=== PATIENT | female | born 1950 | race Caucasian/White ===

== ENCOUNTER 2016-07-01 16:26 | Emergency (ER) | payer OTHER ==
--- NOTE | 2016-07-01 17:46 | ER PHYSICIAN DOCUMENTATION ---
Physician Documentation [facility] Name:Cynthia Acevedo Age:65 yrs Sex:Female :1950 Arrival Date:07/01/2016 Time:16:26 Bed5 Private MD:Deedee Fuchs EDBriannaKristofer Disposition: 07/01 18:00 Chart complete. tl1 Disposition: 07/01/16 17:24 Discharged to Home/Self Care. Impression: Viral Upper Respiratory Infection (URI). - Condition is Good. - Discharge Instructions: INFLUENZA (Adult), VIRAL URI Adult - URI, Viral, No Abx (Adult). - Medical Reconciliation form form. - Follow up: Deedee Fuchs MD; When: 4- 6 days; Reason: Recheck today's complaints, Continuance of care. - Problem is new. - Symptoms have worsened. - Notes: OK TO TRY TAMIFLU. YOU COULD HAVE INFLUENZA EVEN THOUGH YOUR TEST TODAY WAS NEGATIVE. HPI: 16:39 This 65 yrs old Female presents to ER with complaints of Cold Symptoms. tl1 16:45 This feels like prior episodes of influenza. Abrupt onset yesterday of fever, malaise, tl1 myalgias, ST, mild cough, h/a. No N/V/D or rash.. Historical: - Allergies: Levaquin; - Home Meds: 1. None 2. Flonase 50 mcg/actuation nasal spsn - PMHx: Medical Screening Exam-Non Urgent (November 13, 2015); influenza twice; Acute Sinusitis - : Maxillary (May 16, 2014); - PSHx: KNEE SURGERY; HYSTERECTOMY; - Tetanus: < 10 years. - Ebola Screening: : Patient negative for fever greater than or equal to 101.5 degrees Fahrenheit, and additional compatible Ebola Virus Disease symptoms. Patient denies exposure to infectious person. Patient denies travel to an Ebola-affected area in the 21 days before illness onset. No symptoms or risks identified at this time. . - Immunization history: Flu Vaccine < 1 year. - Social history: Smoking status: Patient states was never smoker of tobacco. ROS: 16:45 Respiratory: Negative for hemoptysis, orthopnea, pleurisy, shortness of breath, sputum tl1 production, wheezing. 16:45 All other systems are negative. Exam: 16:45 Constitutional: This is a well developed, well nourished patient who is awake, alert, tl1 and in no acute distress. Head/Face: Normocephalic, atraumatic. Eyes: Pupils equal round and reactive to light, extra-ocular motions intact. Lids and lashes normal. Conjunctiva and sclera are non-icteric and not injected. Cornea within normal limits. Periorbital areas with no swelling, redness, or edema. ENT: Nares patent. No nasal discharge, no septal abnormalities noted. Tympanic membranes are normal and external auditory canals are clear. Oropharynx with no redness, swelling, or masses, exudates, or evidence of obstruction, uvula midline. Mucous membranes moist. Neck: Trachea midline, no thyromegaly or masses palpated, and no cervical lymphadenopathy. Supple, full range of motion without nuchal rigidity, or vertebral point tenderness. No Meningismus. Cardiovascular: Regular rate and rhythm with a normal S1 and S2. No gallops, murmurs, or rubs. Normal PMI, no JVD. No pulse deficits. Respiratory: Lungs have equal breath sounds bilaterally, clear to auscultation and percussion. No rales, rhonchi or wheezes noted. No increased work of breathing, no retractions or nasal flaring. Abdomen/GI: Soft, non-tender, with normal bowel sounds. No distension or tympany. No guarding or rebound. No evidence of tenderness throughout. 16:45 Skin: Warm, dry with normal turgor. Normal color with no rashes, no lesions, and no tl1 evidence of cellulitis. Vital Signs: 17:08 BP 125 / 82; Pulse 91; Resp 24; Temp 100.1; Pulse Ox 95% on R/A; Pain 7/10; rs MDM: 16:35 Patient medically screened. tl1 18:00 Differential diagnosis: bronchitis, flu, URI. Antibiotic administration: Not indicated, tl1 She has Tamiflu at home and plans to take it. I gave her my Tamiflu Schpiel: that I generally do not recommend it and that the potential side effects may not justify the potential small benefit. She understands.. Data reviewed: vital signs, nurses notes, lab test result(s), and as a result, I will discharge patient. Counseling: I had a detailed discussion with the patient and/or guardian regarding: the historical points, exam findings, and any diagnostic results supporting the discharge/admit diagnosis, lab results, the need for outpatient follow up, to return to the emergency department if symptoms worsen or persist or if there are any questions or concerns that arise at home. 07/01 16:59 Order name: INFLUENZA A/B; Complete Time: 17:21 EDCT 07/01 17:21 Interpretation: Normal: INFLUENZA A/B INF A B NEGATIVE. tl1 Dispensed Medications: No medications were administered Signatures: Amanda Beach RN RN st Stalker, Rachael, RN RN rs Leigh, Tom, MD MD tl1
--- NOTE | 2016-07-01 17:46 | ER NURSING DOCUMENTATION ---
Nurse's Notes [facility] Name:Cynthia Acevedo Age:65 yrs Sex:Female :1950 Arrival Date:07/01/2016 Time:16:26 Bed5 Private MD:Deedee Fuchs Diagnosis:Viral Upper Respiratory Infection (URI) Presentation: 07/01 16:30 Presenting complaint: Patient states: Has had influenza twice in the past two years, rs and was very sick for months after the first episode. States she does keep medication at home but wanted to make sure she does have the flu prior to starting the medication. Sx started yesterday, DRISCOLL, teeth ache, ache all over, no cough, no runny nose, temp 100.0 at home. Transition of care: Home. 16:30 Acuity: CAROLA 3 rs 16:30 Method Of Arrival: Private Vehicle rs Triage Assessment: 17:05 General: Appears uncomfortable, well developed, well nourished, well groomed, Behavior rs is cooperative, pleasant. Pain: Complains of pain in DRISCOLL, neck pain, achey all over. Pain currently is 7 out of 10 on a pain scale. Neuro: No deficits noted. Level of Consciousness is awake, alert, Oriented to person, place, time, event. Cardiovascular: No deficits noted. Capillary refill < 3 seconds Pulses are 3+ in right radial artery. Respiratory: No deficits noted. Airway is patent Respiratory effort is even, unlabored, Respiratory pattern is regular, symmetrical. Derm: No deficits noted. Skin is pink, warm & dry. Historical: - Allergies: Levaquin; - Home Meds: 1. None 2. Flonase 50 mcg/actuation nasal spsn - PMHx: Medical Screening Exam-Non Urgent (November 13, 2015); influenza twice; Acute Sinusitis - : Maxillary (May 16, 2014); - PSHx: KNEE SURGERY; HYSTERECTOMY; - Tetanus: < 10 years. - Ebola Screening: : Patient negative for fever greater than or equal to 101.5 degrees Fahrenheit, and additional compatible Ebola Virus Disease symptoms. Patient denies exposure to infectious person. Patient denies travel to an Ebola-affected area in the 21 days before illness onset. No symptoms or risks identified at this time. . - Immunization history: Flu Vaccine < 1 year. - Social history: Smoking status: Patient states was never smoker of tobacco. Screenin:10 Infectious Disease Risk None. Abuse screen: Denies threats or abuse. Nutritional rs screening: No deficits noted. Vital Signs: 17:08 BP 125 / 82; Pulse 91; Resp 24; Temp 100.1; Pulse Ox 95% on R/A; Pain 7/10; rs ED Course: 16:27 Patient arrived in ED. arc 16:28 Deedee Fuchs MD is Private Physician. arc 16:30 Saba Greene, TIFFANI is Primary Nurse. rs 16:37 Kristofer Reed MD is Attending Physician. tl1 16:55 Notified ED Physician of patient's arrival and chief complaint. Dr. Reed notified. Bed rs in low position Call Light in Reach HOB Elevated Side rails up x1. flu swab sent. 16:58 Triage completed. rs 17:23 Deedee Fuchs MD is Referral Physician. tl1 Administered Medications: No medications were administered Outcome: 17:24 Discharge ordered by . tl1 17:44 Discharged to home ambulatory. rs 17:44 Condition: stable 17:44 Discharge instructions given to patient, Instructed on discharge instructions, Demonstrated understanding of instructions, medications, when she can go back to work. 17:45 Patient left the ED. rs 04 17:54 Discharge F/U Call: Unable to reach: no answer st Signatures: Amanda Beach RN RN st Stalker, Rachael, TIFFANI RN Kristofer Segovia MD MD tl1 Madiha Rivas, Reg Reg arc
== END 2016-07-01 17:46 | disposition home or self-care (01) ==
LOC: ER 16:26
DX: J06.9 Acute upper respiratory infection, unspecified (principal); M79.1 Myalgia; R53.81 Other malaise
CPT/HCPCS: 87449; 99281